=== PATIENT | male | born 1990 | race Caucasian/White ===

== ENCOUNTER 2023-08-08 18:50 | Emergency (ER) | payer BC, MEDICAID ==
[~2023-08-08] VITALS: Ht 175.3 cm; Wt 82.0 kg
[2023-08-08 18:53] VITALS: O2SAT 100
[2023-08-08 20:00] LABS: BASOPHILS % 0.5 % (0.0-2.0); EOSINOPHILS % 0.7 % (0.0-5.0); HEMATOCRIT. 42.8 % (42.0-52.0); HEMOGLOBIN. 14.5 g/dL (14.0-18.0); LYMPHOCYTES % 21.5 % (20.0-50.0); MEAN CORPUSCULAR HEMOGLOBIN 30.9 pg (28.0-32.0); MEAN CORPUSCULAR HGB CONC 33.9 g/dL (31.0-37.0); MEAN CORPUSCULAR VOLUME 91.2 fL (80.0-94.0); MEAN PLATELET VOLUME 7.6 fl (7.4-10.4); NEUTROPHILS % 70.3 % (40.0-76.0); PLATELET 181 x1000/uL (130-400); RED BLOOD CELL COUNT 4.69 mill/uL (4.7-6.1); WHITE BLOOD COUNT 9.9 x1000/uL (4.5-11.0)
[2023-08-08] MEDS: SODIUM CHLORIDE 0.9% 1,000 ML IV ONE (20:00)
[2023-08-08 20:06] LABS: CHLORIDE 97 mEq/L (98-107); POTASSIUM 3.6 mEq/L (3.5-5.1); SODIUM 137 mEq/L (136-145)
[2023-08-08 20:07] LABS: CALCIUM 9.5 mg/dL (8.7-10.4); CARBON DIOXIDE 30 mEq/L (21-32)
[2023-08-08 20:09] LABS: INR 0.9; PROTHROMBIN TIME 10.4 sec (9.6-11.0)
[2023-08-08 20:12] LABS: CREATININE 0.8 mg/dL (0.6-1.3); GLUCOSE 100 mg/dL (70-105); UREA NITROGEN BLOOD 11 mg/dL (9-23)
[2023-08-08 20:14] LABS: ALANINE AMINOTRANSFERASE 55 IU/L (10-49); ALBUMIN 4.8 g/dL (3.2-4.8); ASPARTATE AMINOTRANSFERASE 53 IU/L (<34); BILIRUBIN DIRECT 0.5 mg/dL (<=3.0); BILIRUBIN TOTAL 1.7 mg/dL (0.1-1.0); PROTEIN TOTAL 7.7 g/dL (6.0-8.3)
[2023-08-08 20:18] LABS: TROPONIN I HIGH SENSITIVITY 109 ng/L (3.0-53)
[2023-08-08] MEDS: ASPIRIN 325MG EC TABLET PO NR (21:30)
[2023-08-08] MEDS: ENOXAPARIN 80MG/0.8ML SYR SUBCUT NR (21:31)
[2023-08-08] MEDS: LABETALOL 5MG/ML 4ML INJ IV NR (21:32)
[2023-08-08 22:10] VITALS: BP 177/118; PULSE 102; RESP 20; TEMP 98.1
[2023-08-08] MEDS ORDERED: DOCUSATE SODIUM 100MG CAPSULE PO PRN (22:15)
[2023-08-08] MEDS ORDERED: GUAIFENESIN 200MG/10ML SUGAR FREE UDC PO PRN (22:15)
[2023-08-08] MEDS ORDERED: MAGNESIUM/ALUMINUM HYDROXIDE/SIMETHICONE 30ML UDC PO PRN (22:15)
[2023-08-08] MEDS ORDERED: ACETAMINOPHEN 325MG TABLET PO PRN ×2 (22:15)
[2023-08-08] MEDS ORDERED: IPRATROPIUM/ALBUTEROL 0.5-3(2.5)MG/3ML NEB HHN PRN (22:15)
[2023-08-08] MEDS ORDERED: CLONIDINE 0.1MG TABLET PO PRN (22:15)
[2023-08-08] MEDS ORDERED: ONDANSETRON HCL 4MG/2ML INJ IV PRN (22:15)
[2023-08-08] MEDS: LORAZEPAM 1MG TABLET PO ONE (22:21)
[2023-08-08 22:45] LABS: TRIGLYCERIDE 150 mg/dL (0-150)
[2023-08-08 22:46] LABS: ETHANOL BLOOD < 10 mg/dL (<10); LDL CHOLESTEROL 107 mg/dL (5-100)
[2023-08-08 22:47] LABS: CHOLESTEROL 238 mg/dL (<200); HDL CHOLESTEROL 117 mg/dL (>55)
[2023-08-08 22:49] LABS: T4 FREE 1.58 ng/dL (0.89-1.76)
[2023-08-08 22:50] LABS: THYROID STIMULATING HORMONE 3.53 uIU/mL (0.55-4.78)
[2023-08-08] MEDS ORDERED: NITROGLYCERIN 0.4MG/HR PATCH TOP PRN (23:00)
[2023-08-08] MEDS ORDERED: LORAZEPAM 1MG TABLET PO NR (23:45)
== END 2023-08-09 00:52 | disposition left against medical advice (07) ==
LOC: ER 18:50
DX: I10 Essential (primary) hypertension (principal); H92.03 Otalgia, bilateral; F17.200 Nicotine dependence, unspecified, uncomplicated; F12.90 Cannabis use, unspecified, uncomplicated; F41.9 Anxiety disorder, unspecified
CPT/HCPCS: 80061; 80076; 80048; 80320; 83036; 83880; 84439; 83690; 84443; 85025; 85379; 85610; 84484; 36415; 71045; 70450; 93005; 96361; 96372; 96374; 99285; J1650; J3490; G0480